=== PATIENT | female | born 1990 | race Caucasian/White ===

== ENCOUNTER 2016-09-21 16:48 | Emergency (ER) | payer MEDICAID ==
[2016-09-21] MEDS ORDERED: HYDROcod/ACETAM 5/325 MG TABLET PO STA (20:49)
[2016-09-21] MEDS ORDERED: HYDROcod/ACETAM 5/325 MG TABLET ONE (20:52)
== END 2016-09-21 21:30 | disposition home or self-care (01) ==
DX: N83.202 Unspecified ovarian cyst, left side (principal); Z86.711 Personal history of pulmonary embolism; F17.200 Nicotine dependence, unspecified, uncomplicated; Z97.5 Presence of (intrauterine) contraceptive device
CPT/HCPCS: 76830; 76856; 81003; 81025; 93975; 99283; 99284; A9270

== ENCOUNTER 2016-10-04 20:26 | Emergency (ER) | payer MEDICAID ==
[2016-10-04] MEDS ORDERED: BENZONATATE 100 MG CAPSULE PO STA (21:27)
[2016-10-04] MEDS ORDERED: DEXAMETHASONE 10 MG/ML VIAL PO STA (21:27)
[2016-10-04] MEDS ORDERED: DEXAMETHASONE 10 MG/ML VIAL ONE (21:33)
[2016-10-04] MEDS ORDERED: BENZONATATE 100 MG CAPSULE PO ONE (21:33)
== END 2016-10-04 21:39 | disposition home or self-care (01) ==
DX: J40 Bronchitis, not specified as acute or chronic (principal); Z86.711 Personal history of pulmonary embolism; F17.200 Nicotine dependence, unspecified, uncomplicated
CPT/HCPCS: 71020; 99283; A9270

== ENCOUNTER 2016-11-17 20:57 | Emergency (ER) | payer MEDICAID ==
[2016-11-17] MEDS ORDERED: ACETAMINOPHEN 325 MG TABLET PO STA (22:34)
[2016-11-17] MEDS ORDERED: ACETAMINOPHEN 325 MG TABLET PO ONE (22:39)
== END 2016-11-17 23:30 | disposition home or self-care (01) ==
DX: R10.33 Periumbilical pain (principal); N93.9 Abnormal uterine and vaginal bleeding, unspecified; Z86.711 Personal history of pulmonary embolism; F17.200 Nicotine dependence, unspecified, uncomplicated
CPT/HCPCS: 36415; 80053; 81001; 81025; 83690; 85025; 99283; A9270

== ENCOUNTER 2017-11-13 03:22 | Emergency (ER) | payer MEDICAID ==
--- NOTE | 2017-11-13 05:28 | ED Physician Documentation ---
History of Present Illness - Stated complaint Stated Complaint: PAINFUL BREATHING - Chief complaint Chief Complaint: Resp - History obtained from History obtained from: Patient - History of Present Illness Timing: Today Pain level now: 3 Improved by: rest Worsened by: cough, inspiration - Additonal information Additional information: c/o pleuritic chest pain radiating to back. h/o PE Review of Systems Constitutional: reports: Reviewed and negative Cardiac: reports: Chest pain / pressure. denies: Palpitations, Pedal edema, Calf pain Respiratory: reports: Cough. 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 - Present Medications Home Medications: Ambulatory Orders Medication Instructions Recorded Confirmed No Known Home Medications [No 11/17/16 11/17/16 Known Home Medications] - Allergies Allergies/Adverse Reactions: Allergies Allergy/AdvReac Type Severity Reaction Status Date / Time ibuprofen lysine * Allergy Mild Rash Verified 11/17/16 21:00 [From NeoProfen (ibuprofen lysn)(PF)] Penicillins Allergy Unknown Unknown Verified 11/17/16 21:00 - Social History Does the pt smoke?: Yes Smoking Status: Current every day smoker Does the pt drink ETOH?: Yes Does the pt have substance abuse?: No - Immunizations Immunizations are current?: Yes Immunizations: TDAP current <10years - POLST Patient has POLST: No PD ED PE NORMAL - Vitals Vital signs reviewed: Yes - General General: Alert and oriented X 3, No acute distress, Well developed/nourished - Cardiac Cardiac: RRR, No murmur, No gallop, No rub - Respiratory Respiratory: No respiratory distress, Clear bilaterally - Abdomen Abdomen: Soft, Non tender - Extremities Extremities: No edema Results - Vitals Vitals: Oxygen O2 Source Room air - Labs Labs: Laboratory Tests 11/13/17 11/13/17 11/13/17 06:12 06:12 06:15 WBC 11.4 H RBC 5.27 Hgb 13.7 Hct 41.7 MCV 79.2 L MCH 26.0 L MCHC 32.8 RDW 14.1 Plt Count 196 MPV 8.5 Neut # 7.6 H Lymph # 2.5 [place] # 1.0 Eos # 0.2 Baso # 0.1 Absolute Nucleated RBC 0.01 Nucleated RBC % 0.1 Sodium 136 Potassium 3.0 L Chloride 102 Carbon Dioxide 27 Anion Gap 7.0 BUN 9 Creatinine 0.8 Estimated GFR (MDRD) 87 L Glucose 113 H Calcium 8.3 L Ur Specific [place] 1.015 Urine HCG, Qual NEGATIVE - Rads (name of study) CT chest (PE study) Radiology: Prelim report reviewed, See rad report PD MEDICAL DECISION MAKING - ED course Complexity details: reviewed results, re-evaluated patient, considered differential, d/w patient Departure - Departure Disposition: 01 Home, Self Care Clinical Impression: Chest pain, Atelectasis Condition: Good Instructions: ED Atelectasis, ED Chest Pain Atypical Unkn Cause Follow-Up: [facility] [Provider Group] [facility] [Provider Group] Discharge Date/Time: 11/13/17 08:46
[2017-11-13] MEDS ORDERED: IOPAMIDOL-300 100 ML VIAL ONE (06:08)
[2017-11-13 06:26] LABS: BASOPHILS # (AUTO) 0.1 10^3/uL (0.0-0.1); BASOPHILS % (AUTO) 0.4 %; EOSINOPHILS # (AUTO) 0.2 10^3/uL (0.0-0.7); EOSINOPHILS % (AUTO) 1.8 %; HGB - HEMOGLOBIN 13.7 g/dL (12.0-16.0); LYMPHOCYTES # (AUTO) 2.5 10^3/uL (1.5-3.5); MEAN CORPUSCULAR HGB CONC 32.8 g/dL (32.0-36.0); MEAN CORPUSCULAR VOLUME 79.2 fL (81.0-99.0); MEAN PLATELET VOLUME 8.5 fL (7.9-10.8); MONOCYTES % (AUTO) 8.8 %; NEUTROPHILS # (AUTO) 7.6 10^3/uL (1.5-6.6); PLT - PLATELET COUNT 196 10^3/uL (130-450); RED BLOOD COUNT 5.27 10^6/uL (4.20-5.40); RED CELL DISTRIBUTION WIDTH 14.1 % (12.0-15.0); WHITE BLOOD COUNT 11.4 x10^3/uL (4.8-10.8)
[2017-11-13 06:34] LABS: CALCIUM 8.3 mg/dL (8.5-10.3); CREATININE 0.8 mg/dL (0.4-1.0)
[2017-11-13] MEDS ORDERED: IOPAMIDOL-300 100 ML VIAL IVP ONE (06:51)
[2017-11-13 06:54] VITALS: BP 156/94
[2017-11-13 06:54] LABS: HCG UR QUAL NEGATIVE
--- NOTE | 2017-11-13 07:31 | CT Report ---
EXAM: CT ANGIOGRAM CHEST EXAM DATE: 11/13/2017 06:55 AM. CLINICAL HISTORY: Pleuritic chest pain, h/o PE. COMPARISON: None. TECHNIQUE: Routine helical imaging was performed through the chest in the pulmonary arterial phase. I V Contrast: 80 cc Isovue 300. Reconstructions: Coronal 3-D MIP reconstructions.Sagittal and coronal. In accordance with CT protocol optimization, one or more of the following dose reduction techniques w ere utilized for this exam: automated exposure control, adjustment of mA and/or KV based on patient s ize, or use of iterative reconstructive technique. FINDINGS: Pulmonary Arteries: Diagnostic quality: Adequate through the segmental arteries. No evidence for acute or chronic pulmona ry emboli. RV/LV is within normal limits. There is no interventricular septal bowing. There is no reflux of cont rast material in the IVC. Lungs/Pleura: Mild hazy subpleural basilar consolidation could represent atelectasis. No other consol idation. No pleural effusion or pneumothorax. Mediastinum: Normal. No cardiac enlargement or adenopathy. Thoracic Aorta: Unremarkable. Upper Abdomen: Unremarkable. Incidental small accessory spleen adjacent to the spleen. Other: None. IMPRESSION: 1. No pulmonary emboli bilaterally. 2. Mild hazy subpleural basilar pulmonary consolidation likely represents dependent atelectasis. No o ther suspicious consolidation. [facility] Referring Provider Line: [phone] SITE ID: [id number]
[2017-11-13] MEDS ORDERED: ACETAMINOPHEN 325 MG TABLET PO STA (08:32)
== END 2017-11-13 08:46 | disposition home or self-care (01) ==
LOC: ED 03:22
DX: R07.9 Chest pain, unspecified (principal); J98.11 Atelectasis; Z86.711 Personal history of pulmonary embolism
CPT/HCPCS: 36415; 71275; 80048; 81025; 85025; 99283; A9270; Q9967

== ENCOUNTER 2017-11-15 15:00 | Outpatient (CLI) | payer MEDICAID | END 2017-11-15 15:15 | disposition home or self-care (01) | LOC: RT.N 15:00 | PROVIDERS: ATTEND Nurse Practitioner Gerontology | DX: R06.02 Shortness of breath (principal) | CPT/HCPCS: 93005 ==

== ENCOUNTER 2017-11-22 14:05 | Outpatient (CLI) | payer MEDICAID ==
[2017-11-22 15:00] LABS: BASOPHILS % (AUTO) 0.4 %; EOSINOPHILS # (AUTO) 0.2 10^3/uL (0.0-0.7); EOSINOPHILS % (AUTO) 1.8 %; HGB - HEMOGLOBIN 13.9 g/dL (12.0-16.0); LYMPHOCYTES % (AUTO) 21.6 %; MEAN CORPUSCULAR HEMOGLOBIN 26.9 pg (27.0-31.0); MEAN CORPUSCULAR HGB CONC 33.5 g/dL (32.0-36.0); MEAN CORPUSCULAR VOLUME 80.2 fL (81.0-99.0); MEAN PLATELET VOLUME 8.7 fL (7.9-10.8); MONOCYTES # (AUTO) 0.7 10^3/uL (0.0-1.0); MONOCYTES % (AUTO) 8.1 %; NEUTROPHILS # (AUTO) 6.3 10^3/uL (1.5-6.6); NEUTROPHILS % (AUTO) 68.1 %; PLT - PLATELET COUNT 220 10^3/uL (130-450); RED BLOOD COUNT 5.18 10^6/uL (4.20-5.40); RED CELL DISTRIBUTION WIDTH 14.7 % (12.0-15.0); WHITE BLOOD COUNT 9.3 x10^3/uL (4.8-10.8)
[2017-11-22 15:08] LABS: ALBUMIN 3.9 g/dL (3.2-5.5); ALBUMIN/GLOBULIN RATIO 1.2 (1.0-2.2); ALKALINE PHOSPHATASE 81 IU/L (42-121); ALT ALANINE AMINOTRANSFERASE 31 IU/L (10-60); AST ASPARTATE AMINOTRANSFERASE 19 IU/L (10-42); BILIRUBIN,TOTAL 0.6 mg/dL (0.2-1.0); BUN - BLOOD UREA NITROGEN 10 mg/dL (6-20); CALCIUM 8.7 mg/dL (8.5-10.3); CARBON DIOXIDE - CO2 25 mmol/L (21-32); CHLORIDE 104 mmol/L (101-111); CHOL/HDL RATIO 3.9 (<4.4); CHOLESTEROL 117 mg/dL; CREATININE 0.7 mg/dL (0.4-1.0); GFR - MDRD 102 (>89); GLUCOSE 72 mg/dL (70-100); HDL CHOLESTEROL 30 mg/dL; LDL CHOLESTEROL,CALCULATED 76 mg/dL; LDL/HDL RATIO 2.5 (<4.4); SODIUM 137 mmol/L (135-145); TOTAL PROTEIN 7.2 g/dL (6.7-8.2); VLDL CHOLESTEROL 11 mg/dL
[2017-11-22 15:44] LABS: D-DIMER 202.4 ng/mL (200.0-255.0)
[2017-11-22 15:49] LABS: INR 1.1 (0.8-1.2); PT - PROTHROMBIN TIME 11.9 secs (9.9-12.6)
[2017-11-23 11:11] LABS: HOMOCYSTEINE 7.6 umol/L (<10.4)
== END 2017-11-22 14:06 | disposition home or self-care (01) ==
LOC: LAB 14:05
PROVIDERS: ATTEND Nurse Practitioner Gerontology
DX: D68.9 Coagulation defect, unspecified (principal); Z13.9 Encounter for screening, unspecified
CPT/HCPCS: 36415; 80053; 80061; 81241; 81599; 83090; 83721; 84443; 85025; 85379; 85610; 85613; 85730; 86147